=== PATIENT | male | born 1995 | race Caucasian/White ===

== ENCOUNTER → 2019-12-02 08:27 | Outpatient (CLI) | payer OTHER, SELFPAY ==
--- NOTE | 2019-12-02 | DI.RAD.S_ITS ---
PROCEDURE: [place] ANKLE INJECTION MR/CT RT INDICATIONS: Encounter for other orthopedic aftercare TECHNIQUE: After informed consent had been obtained, the ankle was examined fluoroscopically in the lateral projection, and a site for needle placement chosen for entry into the tibiotalar joint from an anterior approach. Care was taken to locate the dorsalis pedis artery beforehand. The skin was prepped and draped in a sterile fashion, and 1% Xylocaine infiltrated from skin down to joint capsule. A hypodermic needle was inserted into the joint, and a small amount of iodinated contrast media injected to confirm intra-articular placement of the needle tip. This was followed by approximately 5 mL dilute solution of a gadolinium containing MR contrast agent. The needle was removed and a dressing was applied. The patient was given postprocedural instructions and sent to the MR suite for MR imaging. The attending radiologist was present during invasive portions of the procedure, and performed all intra-articular injections. FINDINGS: fluoroscopic spot images demonstrates intra-articular location of injected iodinated contrast. IMPRESSION: Successful fluoroscopically guided administration of dilute Gadolinium solution into the tibiotalar joint for MR arthrogram. Dictated by: Mark Shirley M.D. on 12/02/2019 at 14:03 Approved by: Mark Shirley M.D. on 12/02/2019 at 14:05
--- NOTE | 2019-12-02 | DI.MRI.S_ITS ---
PROCEDURE: MR ANKLE RT W CON INDICATIONS: Encounter for other orthopedic aftercare TECHNIQUE: After the administration of 5 mL of dilute intra-articular Gadolinium contrast into the tibiotalar joint, sagittal T1 spin echo with and without fat saturation, axial T1 fast spin echo with fat saturation and T2 fast spin echo with fat saturation, coronal T1 spin echo and T2 fast spin echo with fat saturation through the ankle. COMPARISON: [facility], , [place] ANKLE INJECTION MR/CT RT, 12/02/2019, 7:54. FINDINGS: Image quality: Excellent. Bones and joints: No bone marrow contusions or fractures. Postsurgical changes related to lateral sideplate and screw fixation of the distal fibula. No hindfoot coalitions. Mild diffuse midfoot and hindfoot degenerative sclerosis spurring. No osteochondral injuries of the talar dome. No evidence of intra-articular loose body identified. Medial structures: Posterior tibialis intact. Flexor digitorum longus intact. Flexor hallucis longus tendon intact. The posterior tibial neurovascular bundle appears normal within the tarsal tunnel, without extrinsic mass effect. Deltoid ligament complex appears intact. The spring ligament appears intact. Lateral structures: Anterior talofibular ligament intact. Calcaneofibular ligament intact. Posterior talofibular ligament intact. Anterior and posterior tibiofibular ligaments appear intact, as is the intermalleolar ligament. Tibiofibular syndesmosis is normal in width at 2 mm or less. Peroneus longus and brevis tendons demonstrate normal location and morphology. Bony peroneal tubercle and retrotrochlear prominence are normal in size. Sinus tarsi demonstrates normal fatty signal, without edema, fibrosis, or cyst formation. Anterior structures: Expected postprocedural changes related to anterior approach injection. Tibialis anterior intact. Extensor hallucis longus intact. Extensor digitorum longus tendon intact. Dorsal talonavicular ligament appears intact. Posterior and plantar structures: Achilles tendon is intact. Medial and lateral bands of the plantar fascia intact. No abductor digiti quinti muscle atrophy to suggest Villanueva neuropathy. IMPRESSION: Expected MR appearance for for of postsurgical changes related to plate and screw fixation of the distal fibula. No evidence of intra-articular loose body. Dictated by: Mark Shirley M.D. on 12/02/2019 at 10:31 Approved by: Mark Shirley M.D. on 12/02/2019 at 10:39
== END ==
PROVIDERS: Referring Provider Orthopaedic Surgery; Visit Provider Orthopaedic Surgery
DX: Z47.89 Encounter for other orthopedic aftercare (principal)
CPT/HCPCS: 20605; 73722; 77002